=== PATIENT | female | born 1940 | race Caucasian/White ===

== ENCOUNTER 2017-05-03 23:08 | Inpatient (IN) | payer MEDICARE, MEDICAID ==
[~2017-05-03] VITALS: Ht 152.4 cm; Wt 76.2 kg
--- NOTE | 2017-05-03 23:29 | NUR ---
DR ALVES AT BEDSIDE FOR MSE
--- NOTE | 2017-05-04 00:04 | NUR ---
PT TO CT VIA B[facility]
[2017-05-04 00:25] LABS: BASOPHIL % 0.4 % (0-2); PLATELET COUNT 219 x10^3mcL (130-400)
[2017-05-04 00:28] LABS: CALCIUM 9.2 mg/dL (8.5-10.1); CARBON DIOXIDE 30.1 mmol/L (21-32); CHLORIDE SERUM 105 mmol/L (98-107); CREATININE SERUM 0.7 mg/dL (0.6-1.0); GLUCOSE SERUM 122 mg/dL (74-106); POTASSIUM SERUM 3.7 mmol/L (3.5-5.1); SODIUM SERUM 142 mmol/L (136-145)
[2017-05-04 00:30] LABS: ALKALINE PHOSPHATASE 100 U/L (46-116); ALT/SGPT 17 U/L (14-59); AST/SGOT 16 U/L (15-37); BILIRUBIN TOTAL 0.4 mg/dL (0.20-1.00); LIPASE 187 IU/L (73-393); TOTAL PROTEIN, SERUM 6.9 g/dL (6.4-8.2)
[2017-05-04 00:31] LABS: ALBUMIN 3.3 g/dL (3.4-5.0)
--- NOTE | 2017-05-04 00:45 | NUR ---
PT EDUCATED ON NEED FOR URINE SAMPLE PT REPORTS UNABLE TO PROVIDE AT THIS TIME. PT STATES WILL DO SO VANESA
--- NOTE | 2017-05-04 01:32 | NUR ---
DR ALVES AT BEDSIDE DISCUSSING PLAN OF CARE.
[2017-05-04] MEDS ORDERED: ASPIRIN CHILDRE81 MG PO (01:36)
--- NOTE | 2017-05-04 02:12 | NUR ---
ADMISSION REPORT GIVEN TO MALKA MARISCAL TO CONTINUE CARE.
[2017-05-04 02:43] LABS: MAGNESIUM 2.3 mg/dL (1.8-2.4); PHOSPHOROUS 4.9 mg/dL (2.5-4.9)
[2017-05-04 02:44] LABS: CHOLESTEROL/HDL RATIO 4.4
--- NOTE | 2017-05-04 02:58 | NUR ---
PT GIVEN IM MED PER DR ALVES ORDERS. PT EDUCATED ON MED AND DENIES ANY ALLERGIES TO MED. PT AAOX4 BREATHING WITHOUT DIFFICULTY. PT DAUGHTER AT BEDSIDE.
--- NOTE | 2017-05-04 03:00 | NUR ---
PT IV SITE HAS INFILTRATED. IV DC'D, ANGIOCATH INTACT. PT RIGHT ARM ELEVATED AND WARM BLANKET APPLIED. DR ALVES MADE AWARE.
--- NOTE | 2017-05-04 03:13 | NUR ---
MALKA MARISCAL EXT [id number] CONTACTED TO UPDATE ON PT STATUS.
--- NOTE | 2017-05-04 03:14 | NUR ---
DR ALVES AT BEDSIDE ATTEMPTING NEW IV SITE.
[2017-05-04 03:20] LABS: UA SPECIFIC GRAVITY >=1.030 (1.005-1.035); microscopic required? YES; urine erythrocyte 2+ (NEGATIVE)
[2017-05-04 03:31] LABS: T3 TOTAL 1.84 ng/mL
--- NOTE | 2017-05-04 03:39 | NUR ---
PT MEDICATED PER DR ALVES ORDERS. PT VERBALIZED UNDERSTANDING OF TEACHING AND DENIES ALLERGIES TO MED. PT NEW IV SITE EST BY DR ALVES PATENT WITH NO SX OF INFILTRATION. PT AAOX4, TALKING TO DAUGHTER AT BEDSIDE. NO SX OF DISTRESS NOTED AT THIS TIME.
--- NOTE | 2017-05-04 03:50 | NUR ---
MALKA MARISCAL CONTACTED AT EXT [id number] FOR PT UPDATE
[2017-05-04 04:19] LABS: FREE T4 1.03 ng/dL (0.76-1.46); FREE THYROXINE INDEX 3.3 ug/dL (1.4-4.5); T4(THYROXINE) 9.8 ug/dL (4.7-13.3)
--- NOTE | 2017-05-04 04:34 | NUR ---
PT ADMITTED TO [facility] UNIT VIA [facility] ACCOMPANIED BY NURSE. AWAKE AND ALERT. AMBULATORY WITH STEADY GAIT. AOX4. VERBAL WITH CLEAR SPEECH. NO S/S OF RESPIRATORY DISTRESS NOTED ON ROOM AIR, 95%. LUNGS CLEAR BILATERALLY. ON TELE 30, NSR. DENIES ANY CHEST PAIN. ABD SOFT AND ROUND. BOWEL SOUNDS ACTIVE. DENIES ANY NAUSEA AT THIS TIME. PT C/O 5/10 SHARP ABDOMINAL PAIN. PRN NORCO 7.5 MG PO GIVEN. SKIN WARM, DRY, AND INTACT. IV TO LEFT AC PATENT AND INTACT. IV LEVAQUIN INFUSING WELL. NO S/S OF INFECTION NOTED. NO EDEMA NOTED. SCDS IN PLACE. CALL LIGHT WITHIN REACH. WILL CONTINUE TO MONITOR.
[2017-05-04 04:38] VITALS: BP 153/68
[2017-05-04 05:35] LABS: BASOPHIL % 0.4 % (0-2); PLATELET COUNT 207 x10^3mcL (130-400); RED CELL DISTRIBUTION WIDTH 14.3 % (11.5-14.5)
--- NOTE | 2017-05-04 06:34 | NUR ---
PT STATES ABDOMINAL PAIN FEELING BETTER. FLEET ENEMA GIVEN PER MD ORDER. TOLERATED WELL. CALL LIGHT WITHIN REACH. WILL CONTINUE TO MONITOR.
[2017-05-04 06:59] VITALS: BP 153/68
--- NOTE | 2017-05-04 07:33 | NUR ---
PATIENT RESTING IN BED. PATIENT HAS IV TO LAC, SITE IN WNL, NS IS INFUSING 100 ML/HR. SCDS ARE IN PLACE. PATIENT STATED THAT SHE WENT TO THE RESTROOM BUT ONLY WATERY STOOL CAME OUT. PATIENT DENIES PAIN, SOB, NAUSEA AND VOMITING AT THIS TIME. PATIENTS BOWELS ARE PRESENT AND ACTIVE. PATIENT IS NOT IN DISTRESS, CALL LIGHT IS WITHIN REACH, SIDE RAILS ARE UP AND BED IS LOCKED.
[2017-05-04 09:28] VITALS: BP 134/54
--- NOTE | 2017-05-04 10:15 | NUR ---
PATIENT RESTING IN BED, PATIENT TOLERATED MEDICATIONS. EDUCATED PATIENT ABOUT NPO STATUS, PATIENT VERBALIZED UNDERSTANDING. PATIENT DENIES PAIN, SOB, NAUSEA AND VOMITING. CALL LIGHT IS WITHIN REACH, FAMILY IS AT BEDSIDE.
--- NOTE | 2017-05-04 12:56 | NUR ---
FAMILY BEDSIDE, MADE DR FAIRBANKS AWARE WOULD LIKE TO SPEAK WITH HER.
--- NOTE | 2017-05-04 13:01 | NUR ---
REPORTS HAS COLONOSCOPY EVERY 4 YEARS DUE TO POLYPS. LAST COLONOSCOPY WAS 2014. WAS UP TO BATHROOM FOR BM, TAYLOR BLOOD NOTED. MADE AWARE DR UNABLE TO COME TALK TO FAMILY AT THIS TIME. WILL MAKE DR FAIRBANKS AWARE.
--- NOTE | 2017-05-04 13:11 | NUR ---
PAGE GATED DR FAIRBANKS AND RECEIVED CALL FROM DOCTOR, MADE AWARE OF BLOODY STOOL.
--- NOTE | 2017-05-04 13:40 | NUR ---
DR. FONSECA IN TO SEE PATIENT. PERFORMED FECAL OCCULT BLOOD TEST. RESULTING IN POSITIVE FOR BLOOD. DOCTOR INFORMED FAMILY AND STATED THAT GI CONSULT WOULD BE DONE. VITALS WERE REASSED, BP OF 117/58, MAP 77, HR 96, 95% ON ROOM AIR, RR 18. PATIENT DENIES PAIN, NAUSEA, DIZZINESS, LIGHHEADNESS AT THIS TIME. CHEST RISE IS EQUAL AND UNLABORED. CALL LIGHT IS WITHIN REACH.
--- NOTE | 2017-05-04 15:40 | NUR ---
DR. FAIRBANKS IN TO SEE PATIENT INSTRUCTED PATIENT ABOUT COLONOSCOPY TOMORROW AND BOWEL PREP TONIGHT. PATIENT VERBALIZED UNDERSTANDING.
--- NOTE | 2017-05-04 16:15 | NUR ---
BOWEL PREP EDUCATION GIVEN TO PATIENT. PATIENT VERBALIZED UNDERTANDING. PATIENT OBSERVED DRINKING PREP.
--- NOTE | 2017-05-04 16:17 | NUR ---
WITNESSED SIGNATURE ON CONSENTS FOR COLONOSCOPY.
--- NOTE | 2017-05-04 17:40 | NUR ---
PATIENT AMBULATED TO BATHROOM, DENIES SOB, PAIN AND NAUSEA AT THIS TIME. FAMILY IS AT BEDSIDE. INSTRUCTED THAT THEY CANNOT SPEND THE NIGHT. CALL LIGHT IS WITHIN REACH, INSTRUCTED PATIENT TO USE CALL LIGHT WHEN FIRST BOWEL PREP IS COMPLETE.
[2017-05-04 18:21] VITALS: BP 143/63
--- NOTE | 2017-05-04 19:20 | NUR ---
HAND OFF REPORT GIVEN TO NOC NURSE PATIENT IS SITTING ON BEDSIDE COMMODE. PATIENT HAS STARTED SECOND PART OF BOWEL PREP. PATIENTS IV IS LOCKED DUE TO FREQUENT AMBULATION AND LIMITED SPACE. PATIENT IS NOT IN DISTRESS, CHEST RISE EQUAL AND UNLABORED, CALL LIGHT IS WITHIN REACH, SIDE RAILS ARE UP AND BED IS LOCKED.
--- NOTE | 2017-05-04 19:30 | NUR ---
RECEIVED PT AWAKE AND ALERT. AOX4. VERBAL WITH CLEAR SPEECH. NO S/S OF RESPIRATORY DISTRESS NOTED. LUNGS CLEAR BILATERALLY. ON TELE 30, NSR. DENIES ANY CHEST PAIN. ABD SOFT AND ROUND. BOWEL SOUNDS ACTIVE. DENIES ANY ABD PAIN AT THIS TIME. PT C/O "LITTLE NAUSEA," D/T BOWEL PREP, BUT REFUSES ANY MEDICATION AT THIS TIME. PT STATES, "I'M OKAY." SKIN WARM AND DRY. IV TO LEFT AC PATENT AND INTACT. NO S/S OF INFECTION NOTED. NO EDEMA NOTED. CALL LIGHT WITHIN REACH. FAMILY AT BEDSIDE. WILL CONTINUE TO MONITOR.
[2017-05-04 21:25] VITALS: BP 123/67
[2017-05-05] VITALS (7 sets, daily range): BP systolic 117–158; BP diastolic 53–74
--- NOTE | 2017-05-05 | NUR ---
PT RESTING IN BED WITH EYES CLOSED. BREATHING EQUAL AND UNLABORED. NO S/S OF RESPIRATORY DISTRESS NOTED. IV PATENT AND INTACT. NO ADVERSE REACTIONS NOTED FROM IV FLAGYL. PT STILL HAVING LIQUID STOOLS. PT STATES HEADACHE FEELING BETTER. CALL LIGHT WITHIN REACH. WILL CONTINUE TO MONITOR.
[2017-05-05 06:09] LABS: CALCIUM 8.5 mg/dL (8.5-10.1); CARBON DIOXIDE 23.3 mmol/L (21-32); CHLORIDE SERUM 110 mmol/L (98-107); CREATININE SERUM 0.7 mg/dL (0.6-1.0); GLUCOSE SERUM 110 mg/dL (74-106); MAGNESIUM 1.9 mg/dL (1.8-2.4); PHOSPHOROUS 3.5 mg/dL (2.5-4.9); POTASSIUM SERUM 3.4 mmol/L (3.5-5.1); SODIUM SERUM 143 mmol/L (136-145)
--- NOTE | 2017-05-05 06:13 | NUR ---
PT SLEPT INTERMITTENTLY THROUGHOUT THE NIGHT. PT HAD X5 LOOSE STOOLS, YELLOW LIQUID. PT DENIES ANY PAIN OR NAUSEA AT THIS TIME. IV TO LEFT AC PATENT AND INTACT. NO S/S OF INFECTION NOTED. REMAINS NPO FOR SCHEDULED COLONOSCOPY. NO S/S OF DISTRESS NOTED AT THIS TIME. CALL LIGHT WITHIN REACH. WILL CONTINUE TO MONITOR.
[2017-05-05 06:22] LABS: BASOPHIL % 0.4 % (0-2); PLATELET COUNT 194 x10^3mcL (130-400); RED CELL DISTRIBUTION WIDTH 14.3 % (11.5-14.5)
--- NOTE | 2017-05-05 06:36 | NUR ---
NOTED PT'S POTASSIUM LEVEL 3.4. DR. PAN NOTIFIED AND MADE AWARE.
--- NOTE | 2017-05-05 06:59 | NUR ---
PAGED AND SPOKE WITH DR FAIRBANKS FOR ENEMA, NOT CLEAR FOR COLONOSCOPY.
--- NOTE | 2017-05-05 07:14 | NUR ---
FLEET ENEMA GIVEN PER MD ORDER. TOLERATED WELL. ENDORSED CARE TO ONCOMING NURSE.
--- NOTE | 2017-05-05 07:33 | NUR ---
PATIENT RESTING IN BED, PATIENT COMPLETED BOWEL PREP, NOC NURSE TO ADMINISTER FLEET ENEMA PATIENT STILL HAVE YELLOW COLORED BOWEL MOVEMENTS. PATIENT VERBALIZED UNDERSTANDING. PREOP CHECKLIST COMPLETE. PATIENT DENIES PAIN, SOB AND NAUSEA AT THIS TIME. SCDS ARE AT BEDSIDE PATIENT HAS NORMAL SALINE INFUSING AT 100 ML/HR, SITE IS WN. PATIENT IS OXYGENATING AT 97% ON ROOM AIR LUNG SOUNDS ARE CLEAR. CALL LIGHT IS WIHIN REACH, SIDE RAILS ARE UP AND BED IS LOCKED.
--- NOTE | 2017-05-05 07:35 | NUR ---
PATIENT IV LOCKED. ONE RING REMOVED, BELONGING PLACED IN BEDSIDE DRAWER. PREOP CHECKLIST COMPLETE, CONSENTS SIGNED. VITAL SIGNS TAKEN. ONE RING CANNOT BE REMOVED NURSE MADE AWARE. PATIENT NOT IN DISTRESS, LEFT FLOOR FOR COLONOSCOPY.
--- NOTE | 2017-05-05 09:12 | NUR ---
PATIENT BACK FROM COLONOSCOPY PROCEDURE. TELE NOTIFIED. PATIENTS IV CONNECTED TO NORMAL SALINE AND INFUSING. HAND OFF REPORT GIVEN. NURSE STATED 5 POLPS REMOVED, DIVERTICULOSIS, AVM CECUM AND R COLON, NO CAUTERIZATION PERFORMED. PATIENT IS GROGGY BUT VITALS ARE STABLE 124/57, MAP 78, OXYGEN 97 PERCENT ON 2L NC, HR 88, RR 16, PATIENT DENIES PAIN AT THIS TIME. PATIENT IS ON REGULAR DIET HOB ELEVATED PATIENT ATE 100% DENIES NAUSEA AT THIS TIME. CCALL LIGHT IS WITHIN REACH.
--- NOTE | 2017-05-05 11:15 | NUR ---
PATIENT RESTING IN BED, SCDS ARE IN PLACE, GIVE IV ANTIBIOTIC, INFORMED THEM THAT I TALKED TO THE DOCTOR AND SHE WILL BE IN SOON SHE CAN BE TO TALK TO THEM.
--- NOTE | 2017-05-05 12:32 | NUR ---
PATIENT TALKING WITH FAMILY AT BEDSIDE. EDUCATED PATIENT ABOUT DIAGNOSIS OF DIVERTICULOSIS. SCDS ARE IN PLACE. PATIENT ASKING ABOUT DISCHARGE, EDUCATED ABOUT POC. CALL LIGHT WITHIN REACH.
[2017-05-05] MEDS ORDERED: ATORVASTATIN CA40 M1 PO (13:08)
--- NOTE | 2017-05-05 14:30 | NUR ---
PATIENT IS SITTING UP IN BED NOT IN DISTRESS. OXYGEN IS 98% ON ROOM AIR, RR IS 16. PATIENT RECIEVED DISCHARGE INSTRUCTIONS. PATIENT VERBALIZED UNDERSTANDING. PATIENTS BELONGINGS LEFT WITH DAUGHTER. IV WAS REMOVED, CATHETER INTACT, SITE COVERED WITH GAUZE AND TAPE. TELE WAS REMOVED. ID BAND REMOVED. AND PATIENT IS GETTING DRESSED.
--- NOTE | 2017-05-05 14:40 | NUR ---
OFF FLOOR VIA WHEELCHAIR WITH VOICE INSTRUCTOR. ALL BELONGINGS WITH FAMILY.
== END 2017-05-05 14:38 | disposition home or self-care (01) | DRG 394 ==
LOC: ED 23:08 → DU 05-04 01:33
PROVIDERS: Emergency Medicine; Family Medicine; Internal Medicine; ADMIT Family Medicine
PROC: 0DBG8ZZ Excision of Left Large Intestine, Via Natural or Artificial Opening Endoscopic (ICD-10-PCS; 2017-05-05)
PROC: 0DBM8ZZ Excision of Descending Colon, Via Natural or Artificial Opening Endoscopic (ICD-10-PCS; principal; 2017-05-05 08:00)
PROC: 0DBL8ZZ Excision of Transverse Colon, Via Natural or Artificial Opening Endoscopic (ICD-10-PCS; 2017-05-05 08:00)
DX: K55.9 Vascular disorder of intestine, unspecified (principal); N39.0 Urinary tract infection, site not specified; E44.0 Moderate protein-calorie malnutrition; D12.3 Benign neoplasm of transverse colon; D12.4 Benign neoplasm of descending colon; K63.5 Polyp of colon; K56.41 Fecal impaction; E02 Subclinical iodine-deficiency hypothyroidism; E78.5 Hyperlipidemia, unspecified; K57.30 Diverticulosis of large intestine without perforation or abscess without bleeding; R31.9 Hematuria, unspecified; I10 Essential (primary) hypertension; Z68.32 Body mass index [BMI] 32.0-32.9, adult
CPT/HCPCS: 45378; 82962; 83880; 84439; J0500; J1200; J1610; J1956; J2250; J2270; J2310; J2405; J3010; J3490; J7030; Q0092